=== PATIENT | male | born 1950 | race Caucasian/White ===

== ENCOUNTER 2017-11-20 17:28 | Observation (INO) | payer OTHER, MEDICARE ==
[~2017-11-20] VITALS: Ht 182.9 cm; Wt 80.8 kg
[~2017-11-20 17:28] MED LIST: BENZ200C25 PO; CARV3.122 PO; CLOP75TA28 PO; CLOP75TA69 PO; HYDR1TAB PO; LISI-552 PO; LISI2.5T PO; MECL-106 PO
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
--- NOTE | 2017-11-20 17:47 | ED Fall/Injury ---
General Chief Complaint: Trauma-Non Activation Stated Complaint: THROWN OFF OF HORSE/L SIDE INJ Source: patient Exam Limitations: no limitations (KARY MARCUS MD) History of Present Illness Date Seen by Provider: Nov 20, 2017 Time Seen by Provider: 17:31 Initial Comments Here with report of left clavicle fracture. States he is right no horse and got bucked off. Landed on the left shoulder on a hard spot. Is adamant that he did not hit his head and denies head or neck pain. He was wearing his cowboy hat and that did not get knocked off. Denies other injury. States that he has some pain near the shoulder blade on the left as well. He is not on blood thinners. Occurred: just prior to arrival (within the last 30 minutes) Severity: moderate Injuries/Pain Location: upper extremity Context: other (bucked off a horse) Loss of Consciousness: no loss of consciousness Modifying Factors: Improves With Immobilization; Worse With Movement Associated Symptoms (Fall): No Abdominal Pain, No Chest Pain; Muscle Spasms; No Neck Pain, No Shortness of Air (KARY MARCUS MD) Allergies and Home Medications Allergies Coded Allergies: No Known Drug Allergies (Unverified , 06/25/09) Home Medications Amlodipine Besylate 2.5 Mg Tablet, 2.5 MG PO DAILY, (Reported) Carvedilol 3.125 Mg Tablet, 3.125 MG PO BID, (Reported) Olmesartan/Hydrochlorothiazide 1 Each Tablet, 1 EACH PO DAILY, (Reported) Patient Home Medication List Home Medication List Reviewed: Yes (KARY MARCUS MD) Review of Systems Review of Systems Constitutional: see HPI; No chills, No fever Respiratory: no symptoms reported Cardiovascular: no symptoms reported Musculoskeletal: see HPI, joint pain, muscle pain Skin: No change in color, No lesions (KARY MARCUS MD) Past Avtaiwp-Unzrpx-Fminpz Hx Past Med/Social Hx: Reviewed Nursing Past Med/Soc Hx (KARY MARCUS MD) Patient Social History Alcohol Use: Denies Use Recreational Drug Use: No Smoking Status: Former Smoker Type Used: Cigarettes Former Smoker, Quit: Oct 02, 1973 Recent Foreign Travel: No Contact w/Someone Who Travel: No Recent Hopitalizations: No (LEFT FX ELBOW) Physical Abuse: No Sexual Abuse: No (KARY MARCUS MD) Past Medical History Surgeries: Yes Respiratory: Yes (ASTHMA A CHILD) Asthma Cardiac: Yes Hypertension Neurological: No Reproductive Disorders: No Gastrointestinal: No Musculoskeletal: Yes (LEFT ELBOW FX) Endocrine: No Cancer: No Psychosocial: No Integumentary: No Blood Disorders: No (KARY MARCUS MD) Family Medical History Reviewed Nursing Family Hx (KARY MARCUS MD) No Pertinent Family Hx (KARY MARCUS MD) Physical Exam Vital Signs Vital Signs - First Documented 11/20/17 17:30 Temp 97.6 Pulse 86 Resp 18 B/P (MAP) 160/109 (126) Pulse Ox 96 (LULÚ HUA MD) Vital Signs Capillary Refill : (KARY MARCUS MD) Height, Weight, BMI Height: 6'0.00" Weight: 195lbs. 0.0oz. 88.289452ns; 26.5 BMI Method:Estimated General Appearance: WD/WN, no apparent distress HEENT: PERRL/EOMI, TMs normal, pharynx normal Neck: full range of motion, supple Cardiovascular: regular rate, rhythm, no murmur Respiratory: lungs clear, normal breath sounds Gastrointestinal: non tender, soft Back: normal inspection, no CVA tenderness, no vertebral tenderness Extremities: other (tender to the area of the left clavicle but does not include the proximal humerus) Neurologic/Psychiatric: alert, oriented x 3 Skin: normal color, warm/dry (KARY MARCUS MD) Neeta Coma Score Best Eye Response: (4) Open Spontaneously Best Verbal Response: (5) Oriented Best Motor Response: (6) Obeys Commands (KARY MARCUS MD) Progress/Results/Core Measures Results/Orders Lab Results Laboratory Tests Test 11/20/17 17:55 Range/Units White Blood Count 8.2 4.3-11.0 10^3/uL Red Blood Count 4.60 4.35-5.85 10^6/uL Hemoglobin 13.1 L 13.3-17.7 G/DL Hematocrit 39 L 40-54 % Mean Corpuscular Volume 86 80-99 FL Mean Corpuscular Hemoglobin 28 25-34 PG Mean Corpuscular Hemoglobin Concent 33 32-36 G/DL Red Cell Distribution Width 14.9 H 10.0-14.5 % Platelet Count 296 130-400 10^3/uL Mean Platelet Volume 10.1 7.4-10.4 FL Neutrophils (%) (Auto) 68 42-75 % Lymphocytes (%) (Auto) 21 12-44 % Monocytes (%) (Auto) 8 0-12 % Eosinophils (%) (Auto) 2 0-10 % Basophils (%) (Auto) 1 0-10 % Neutrophils # (Auto) 5.6 1.8-7.8 X 10^3 Lymphocytes # (Auto) 1.7 1.0-4.0 X 10^3 Monocytes # (Auto) 0.7 0.0-1.0 X 10^3 Eosinophils # (Auto) 0.2 0.0-0.3 10^3/uL Basophils # (Auto) 0.1 0.0-0.1 10^3/uL Sodium Level 138 135-145 MMOL/L Potassium Level 3.2 L 3.6-5.0 MMOL/L Chloride Level 104 98-107 MMOL/L Carbon Dioxide Level 22 21-32 MMOL/L Anion Gap 12 5-14 MMOL/L Blood Urea Nitrogen 10 7-18 MG/DL Creatinine 1.13 0.60-1.30 MG/DL Estimat Glomerular Filtration Rate > 60 BUN/Creatinine Ratio 9 Glucose Level 129 H 70-105 MG/DL Calcium Level 9.8 8.5-10.1 MG/DL Corrected Calcium 9.4 8.5-10.1 MG/DL Total Bilirubin 0.3 0.1-1.0 MG/DL Aspartate Amino Transf (AST/SGOT) 17 5-34 U/L Alanine Aminotransferase (ALT/SGPT) 20 0-55 U/L Alkaline Phosphatase 56 40-136 U/L Total Protein 7.7 6.4-8.2 GM/DL Albumin 4.5 3.2-4.5 GM/DL (LULÚ HUA MD) My Orders Orders - LULÚ HUA MD Fentanyl Injection (Sublimaze Injection (11/20/17 18:30) Fentanyl Injection (Sublimaze Injection (11/20/17 18:18) Ct Chest W (11/20/17 18:36) Iohexol Injection (Omnipaque 350 Mg/Ml 1 (10/11/18 19:00) Ns (Ivpb) (Sodium Chloride 0.9%) (11/20/17 19:00) Potassium Chloride (Tablet) (Klor Con Ta (11/20/17 20:00) (LULÚ HUA MD) Medications Given in ED Current Medications Medications Dose Ordered Sig/Rafael Route Start Time Stop Time Status Last Admin Dose Admin Fentanyl Citrate 50 mcg ONCE ONCE IVP 11/20/17 18:30 11/20/17 18:31 DC 11/20/17 18:25 50 MCG Iohexol 75 ml ONCE ONCE IV 11/20/17 19:00 11/20/17 19:01 DC 11/20/17 18:59 75 ML Potassium Chloride 20 meq ONCE ONCE PO 11/20/17 20:00 11/20/17 20:01 DC 11/20/17 20:00 20 MEQ Sodium Chloride 250 ml ONCE ONCE IV 11/20/17 19:00 11/20/17 19:01 DC 11/20/17 18:59 250 ML (LULÚ HUA MD) Vital Signs/I&O 11/20/17 17:30 Temp 97.6 Pulse 86 Resp 18 B/P (MAP) 160/109 (126) Pulse Ox 96 (LULÚ HUA MD) Progress Progress Note : Progress Note Seen and evaluated. We did discuss the options of CT of the head and neck and patient is adamant about that he has no pain and did not hit his head. He is not on blood thinners. We will forego CT scanning at this point but will get chest x-ray and clavicle x-ray. 1805: Care transferred to Dr. Escobar pending labs and we will get CT. Fractures noted of the upper ribs and clavicle. Also concern about small pneumothorax and left pleural effusion. 1615: Patient is on high flow O2 but is not in respiratory distress. High flow O2 for small pneumothorax on the left. Case was discussed with Dr. Glass and agrees with CT scan but we will evaluate creatinine given age and history of hypertension and type of blood pressure medicines that he is on. He will be notified of results. No indication for emergent chest tube at this time. (KARY MARCUS MD) Progress Note #1: Time: 18:44 Progress Note Ice in care of this patient from Dr. Marcus at shift change. Labs were pending at that time. CT modality was pending results of creatinine. Creatinine is normal and CT of the chest with contrast was ordered. Patient was placed on high flow oxygen due to presence of pneumothorax. End-tidal capnography was low. Patient was encouraged to except pain medication to help him take deep breaths. Fentanyl 50 g was given by IV route. Patient is now in CT for imaging. Patient denied any injury to the head or neck. He has no pain or tenderness in this region. He also denies any pain in the abdomen or pelvis. He has no pain in the hips with walking or on exam. Abdomen is soft and nontender. He denies lower back pain. CT is being limited to the chest based on history and exam. Progress Note #2: Time: 20:[address] scan was reviewed. Patient has fractures in ribs one through 6 on the left and a small pneumothorax. The clavicle fracture was also seen. I discussed the case with Dr. Glass who would like the patient omitted to the ICU for observation with a chest x-ray done at 22:00 and called to him. We will continue high flow oxygen to help manage the pneumothorax. Dr. Zamora was contacted regarding the clavicle fracture. Images were reviewed. He does not believe there is any reason for patient to be seen by orthopedics in the hospital but he is happy to follow up with him in the clinic. Patient is being fitted with a sling. Potassium is being replaced orally. (LULÚ HUA MD) Diagnostic Imaging Diagonstic Imaging: Xray Plain Films/CT/US/NM/MRI: other Comments NAME: LUIS ALBERTO,VICENTE W [facility] REC#: [id number] PT STATUS: REG ER : 1950 PHYSICIAN: KARY MARCUS MD ADMIT DATE: 11/20/17/ER Signed Date of Exam: 11/20/17 CLAVICLE, LEFT INDICATION: Left clavicle pain after trauma. COMPARISON: Chest radiograph performed concurrently. TECHNIQUE: Two views of the left clavicle were obtained. FINDINGS: There is an acute transverse and minimally comminuted fracture of the mid left clavicle. The superior fracture fragment has superior elevation of greater than one shaft width due to pull from the sternocleidomastoid muscle. Please see chest radiograph report for details of the left-sided rib fractures and pneumothorax. IMPRESSION: 1. Acute and mildly comminuted fracture of the mid left clavicle. 2. Please see chest radiograph report, dictated separately, for details of the acute left-sided rib fractures and associated small pneumothorax. Dictated by: Dictated on workstation # [id number] Dict: 11/20/171755 Trans: 11/20/17 1800 Interpreted by: DARCIE HERNANDEZ MD Electronically signed by: DARCIE HERNANDEZ MD 11/20/171799 Reviewed: Reviewed by Me Diagonstic Imaging: Xray Plain Films/CT/US/NM/MRI: chest Comments NAME: VICENTE SAHU [facility] REC#: [id number] PT STATUS: REG ER : 1950 PHYSICIAN: KARY MARCUS MD ADMIT DATE: 11/20/17/ER Signed Date of Exam: 11/20/17 CHEST PA/LAT (2 VIEW) INDICATION: Chest pain after trauma. COMPARISON: Chest radiograph of 09/04/2015. TECHNIQUE: Two views of the chest were obtained. FINDINGS: Acute and mildly displaced fracture of the posterior left third and fourth ribs. There is associated small pneumothorax present. Small left pleural effusion is also seen. No features of pulmonic laceration or contusion. Acute and displaced fracture of the mid left clavicle. IMPRESSION: 1. Acute and displaced fractures of the posterior aspect of the left third and fourth ribs results in a small left apical pneumothorax. 2. Small left pleural effusion. 3. Displaced mid left clavicular fracture. Dictated by: Dictated on workstation # [id number] Dict: 11/20/171753 Trans: 11/20/17 1800 Interpreted by: DARCIE HERNANDEZ MD Electronically signed by: DARCIE HERNANDEZ MD 11/20/17 1800 Reviewed: Reviewed by Me (KARY MARCUS MD) Diagonstic Imaging: CT Plain Films/CT/US/NM/MRI: chest Comments CT of the chest with contrast viewed by me and report reviewed. Discussed with the radiologist. See report below. Not discussed and the report is also the comminuted left clavicle fracture. See separate x-ray report for the clavicle fracture. NAME: VICENTE SAHU [facility] REC#: [id number] PT STATUS: REG ER : 1950 PHYSICIAN: LULÚ HUA MD ADMIT DATE: 11/20/17/ER Draft Date of Exam:11/20/17 CT CHEST W PROCEDURE: CT chest with contrast only. TECHNIQUE: Multiple contiguous axial images were obtained through the chest after administration of intravenous contrast. INDICATION: Fall off of horse, chest trauma. COMPARISON: Chest radiograph and clavicle radiographs earlier same day. FINDINGS: Lungs and airway: No endoluminal debris within the trachea. There is a small amount of dependent atelectasis in the left lung base. No pulmonary mass. A 6 mm right lower lobe pulmonary nodule (image 39, series 2) is along the major fissure. Pleura: Small left-sided pneumothorax is again noted. A trace left-sided pleural effusion is also seen. Heart and mediastinum: Thyroid is normal. No supraclavicular or axillary lymphadenopathy. No mediastinal hemorrhage. Heart is normal in size without pericardial effusion. No evidence of an acute injury in the aorta. Upper abdomen: Visualized portions of the upper abdomen show no acute traumatic injury. Musculoskeletal: There are fractures in the left upper ribs which are as follows: Minimally comminuted left first rib fracture, mildly comminuted anterior left second rib fracture, segmental fracture of the lateral and anterior left third rib, moderately displaced fracture of the lateral left fourth rib, mildly displaced fracture of the left fifth and sixth ribs in their lateral aspect. No left-sided scapular fracture. Mildly comminuted left mid clavicular fracture is again noted. No sternal fracture. No right-sided rib fractures. No acute compression or burst fracture within the thoracic spine. IMPRESSION: 1. Trace left pneumothorax and pleural effusion are secondary to multiple left-sided rib fractures. 2. Left-sided rib fractures extending from the left first rib through the left sixth rib. The majority of these involve only a single fracture site within the rib, although there is a segmental-type fracture of the left third rib. 3. No pulmonary contusion or laceration. 4. Incidental note of 6 mm right lower lobe pulmonary nodule which may represent a benign intrapulmonary lymph node. A followup CT chest in 6-12 months could be performed to assess stability. Dictated on workstation # [id number] Dict: 11/20/171901 Trans: 11/20/171914 [facility] [id number] Interpreted by: DARCIE HERNANDEZ MD (LULÚ HUA MD) Departure Communication (Admissions) Time/Spoke to Admitting Phy: 19:50 Dr. Glass (LULÚ HUA MD) Impression Primary Impression: Multiple rib fractures Qualified Codes: S22.42XA - Multiple fractures of ribs, left side, initial encounter for closed fracture Additional Impressions: Closed left clavicular fracture Qualified Codes: S42.022A - Displaced fracture of shaft of left clavicle, initial encounter for closed fracture Pneumothorax, left Fall from horse Qualified Codes: V80.010A - Animal-rider injured by fall from or being thrown from horse in noncollision accident, initial encounter Hypokalemia Disposition: ADMITTED INPATIENT Condition: Stable Admissions Decision to Admit Reason: Admit from ER (Trauma) Decision to Admit/Date: Nov 20, 2017 Time/Decision to Admit Time: 18:00 (LULÚ HUA MD) Departure-Patient Inst. Referrals: DARBY SAINZ DO (PCP/Family) Primary Care Physician KARY MARCUS MD Nov 20, 2017 17:47 LULÚ HUA MD Nov 20, 2017 18:47
--- NOTE | 2017-11-20 17:59 | Diagnostic Imaging Report ---
INDICATION: Chest pain after trauma. COMPARISON: Chest radiograph of 09/04/2015. TECHNIQUE: Two views of the chest were obtained. FINDINGS: Acute and mildly displaced fracture of the posterior left third and fourth ribs. There is associated small pneumothorax present. Small left pleural effusion is also seen. No features of pulmonic laceration or contusion. Acute and displaced fracture of the mid left clavicle. IMPRESSION: 1. Acute and displaced fractures of the posterior aspect of the left third and fourth ribs results in a small left apical pneumothorax. 2. Small left pleural effusion. 3. Displaced mid left clavicular fracture. Dictated by: Dictated on workstation # [id number]
[2017-11-20] MEDS ORDERED: OLME1TAB24 PO (18:02)
[2017-11-20] MEDS ORDERED: ASPI-586 PO (18:02)
[2017-11-20] MEDS ORDERED: AMLO2.5T2 PO (18:02)
--- NOTE | 2017-11-20 18:03 | Diagnostic Imaging Report ---
INDICATION: Left clavicle pain after trauma. COMPARISON: Chest radiograph performed concurrently. TECHNIQUE: Two views of the left clavicle were obtained. FINDINGS: There is an acute transverse and minimally comminuted fracture of the mid left clavicle. The superior fracture fragment has superior elevation of greater than one shaft width due to pull from the sternocleidomastoid muscle. Please see chest radiograph report for details of the left-sided rib fractures and pneumothorax. IMPRESSION: 1. Acute and mildly comminuted fracture of the mid left clavicle. 2. Please see chest radiograph report, dictated separately, for details of the acute left-sided rib fractures and associated small pneumothorax. Dictated by: Dictated on workstation # [id number]
[2017-11-20 18:06] LABS: BASOPHILS # (AUTO) 0.1 10^3/uL (0.0-0.1); BASOPHILS % (AUTO) 1 % (0-10); EOSINOPHILS # (AUTO) 0.2 10^3/uL (0.0-0.3); EOSINOPHILS % (AUTO) 2 % (0-10); HEMATOCRIT 39 % (40-54); HEMOGLOBIN 13.1 G/DL (13.3-17.7); LYMPHOCYTES # (AUTO) 1.7 X 10^3 (1.0-4.0); LYMPHOCYTES % (AUTO) 21 % (12-44); MEAN CORPUSCULAR HEMOGLOBIN 28 PG (25-34); MEAN CORPUSCULAR HGB CONC 33 G/DL (32-36); MEAN CORPUSCULAR VOLUME 86 FL (80-99); MEAN PLATELET VOLUME 10.1 FL (7.4-10.4); MONOCYTES # (AUTO) 0.7 X 10^3 (0.0-1.0); MONOCYTES % (AUTO) 8 % (0-12); NEUTROPHILS # (AUTO) 5.6 X 10^3 (1.8-7.8); NEUTROPHILS % (AUTO) 68 % (42-75); PLATELET COUNT 296 10^3/uL (130-400); RED CELL DISTRIBUTION WIDTH 14.9 % (10.0-14.5); WHITE BLOOD COUNT 8.2 10^3/uL (4.3-11.0)
[2017-11-20] MEDS ORDERED: fentaNYL INJECTION 100 MCG/2 ML AMP ONE (18:18)
[2017-11-20 18:28] LABS: ALANINE AMINOTRANSFERASE 20 U/L (0-55); ALBUMIN 4.5 GM/DL (3.2-4.5); ALKALINE PHOSPHATASE 56 U/L (40-136); BILIRUBIN,TOTAL 0.3 MG/DL (0.1-1.0); BUN/CREATININE RATIO 9; CALCIUM 9.8 MG/DL (8.5-10.1); CARBON DIOXIDE 22 MMOL/L (21-32); CHLORIDE 104 MMOL/L (98-107); CREATININE SERUM 1.13 MG/DL (0.60-1.30); GFR ESTIMATED > 60; GLUCOSE 129 MG/DL (70-105); POTASSIUM 3.2 MMOL/L (3.6-5.0); SODIUM 138 MMOL/L (135-145); TOTAL PROTEIN 7.7 GM/DL (6.4-8.2)
[2017-11-20] MEDS ORDERED: fentaNYL INJECTION 100 MCG/2 ML AMP IVP ONE (18:30)
[2017-11-20] MEDS ORDERED: IOHEXOL 350 MG/ML 100 ML (OMNIPAQUE 350) VIAL IV ONE (19:00)
[2017-11-20] MEDS ORDERED: NS 250 ML (IVPB) BAG IV ONE (19:00)
--- NOTE | 2017-11-20 19:16 | Diagnostic Imaging Report ---
PROCEDURE: CT chest with contrast only. TECHNIQUE: Multiple contiguous axial images were obtained through the chest after administration of intravenous contrast. INDICATION: Fall off of horse, chest trauma. COMPARISON: Chest radiograph and clavicle radiographs earlier same day. FINDINGS: Lungs and airway: No endoluminal debris within the trachea. There is a small amount of dependent atelectasis in the left lung base. No pulmonary mass. A 6 mm right lower lobe pulmonary nodule (image 39, series 2) is along the major fissure. Pleura: Small left-sided pneumothorax is again noted. A trace left-sided pleural effusion is also seen. Heart and mediastinum: Thyroid is normal. No supraclavicular or axillary lymphadenopathy. No mediastinal hemorrhage. Heart is normal in size without pericardial effusion. No evidence of an acute injury in the aorta. Upper abdomen: Visualized portions of the upper abdomen show no acute traumatic injury. Musculoskeletal: There are fractures in the left upper ribs which are as follows: Minimally comminuted left first rib fracture, mildly comminuted anterior left second rib fracture, segmental fracture of the lateral and anterior left third rib, moderately displaced fracture of the lateral left fourth rib, mildly displaced fracture of the left fifth and sixth ribs in their lateral aspect. No left-sided scapular fracture. Mildly comminuted left mid clavicular fracture is again noted. No sternal fracture. No right-sided rib fractures. No acute compression or burst fracture within the thoracic spine. IMPRESSION: 1. Trace left pneumothorax and pleural effusion are secondary to multiple left-sided rib fractures. 2. Left-sided rib fractures extending from the left first rib through the left sixth rib. The majority of these involve only a single fracture site within the rib, although there is a segmental-type fracture of the left third rib. 3. No pulmonary contusion or laceration. 4. Incidental note of 6 mm right lower lobe pulmonary nodule which may represent a benign intrapulmonary lymph node. A followup CT chest in 6-12 months could be performed to assess stability. Dictated by: Dictated on workstation # [id number]
[2017-11-20] MEDS ORDERED: KCL 10 MEQ TAB (MICRO K) PO ONE (20:00)
--- OUTSIDE RECORDS SUMMARY | 2017-11-20 20:14 | XMS REPORT | Continuity of Care Document ---
Author Author [facility] Address Unknown Phone Unavailable Allergies Active Description Code Type Severity Reaction Onset Reported/Identified Relationship to Patient Clinical Status Yes No Known Drug Allergies [id number] Drug Allergy Unknown N/A 06/25/2009 Medications There [...] Ot 401.9 HYPERTENSION NOS 05/09/2014 CAYETANO PACHECO, SONY Aquino Ot 562.10 DIVERTICULOSIS COLON (W/O MENT [...] CCDS Ot I10 ESSENTIAL (PRIMARY) HYPERTENSION 10/03/2015 EMAM PACHECO FAC, ALI FACP CCDS Ot I42.0 DILATED CARDIOMYOPATHY 10/03/2015 EMMA PACHECO FACC, ALI FACP CCDS Ot I44.7 LEFT BUNDLE-BRANCH BLOCK, UNSPECIFIED 10/03/2015 EMMA PACHECO FAC, ALI FACP CCDS Ot R42 DIZZINESS AND GIDDINESS 10/03/2015 EMMA PACHECO FAC, ALI FACP CCDS Ot Z79.899 OTHER INTERMEDIATE (CURRENT) DRUG THERAPY 10/10/2015 EMMA PACHECO FACC, ALI FACP CCDS Ot I10 ESSENTIAL (PRIMARY) HYPERTENSION 10/10/2015 EMMA PACHECO FAC, ALI FACP CCDS Ot I42.0 DILATED CARDIOMYOPATHY 10/10/2015 EMMA PACHECO [facility], ALI FACP CCDS Ot I44.7 LEFT BUNDLE-BRANCH BLOCK, UNSPECIFIED 10/10/2015 EMMA PACHECO [facility], ALI FACP CCDS Ot R42 DIZZINESS AND GIDDINESS 10/10/2015 EMMA PACHECO [facility], ALI FACP CCDS Ot Z79.899 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) DRUG THERAPY 10/11/2015 SONY MONTEIRO MD [...] Staphylococcus aureus (MRSA) screening culture NEG NRG Complete blood count (CBC) with automated white blood cell (WBC) differential - 11/20/17 17:55 Blood leukocytes automated count (number/volume) 8.2 10*3/uL 4.3-11.0 Blood erythrocytes automated count (number/volume) 4.60 10*6/uL 4.35-5.85 Venous blood hemoglobin measurement (mass/volume) 13.1 g/dL 13.3-17.7 Blood hematocrit (volume fraction) 39 % 40-54 Automated erythrocyte mean corpuscular volume 86 [foz_us] 80-99 Automated erythrocyte mean corpuscular hemoglobin (mass per erythrocyte) 28 pg 25-34 Automated erythrocyte mean corpuscular hemoglobin concentration measurement ( mass/volume) 33 g/dL 32-36 Automated erythrocyte distribution width ratio 14.9 % 10.0-14.5 Automated blood platelet count (count/volume) 296 10*3/uL 130-400 Automated blood platelet mean volume measurement 10.1 [foz_us] 7.4-10.4 Automated blood neutrophils/100 leukocytes 68 % 42-75 Automated blood lymphocytes/100 leukocytes 21 % 12-44 Blood monocytes/100 leukocytes 8 % 0-12 Automated blood eosinophils/100 leukocytes 2 % 0-10 Automated blood basophils/100 leukocytes 1 % 0-10 Blood neutrophils automated count (number/volume) 5.6 10*3 1.8-7.8 Blood lymphocytes automated count (number/volume) 1.7 10*3 1.0-4.0 Blood monocytes automated count (number/volume) 0.7 10*3 0.0-1.0 Automated eosinophil count 0.2 10*3/uL 0.0-0.3 Automated blood basophil count (count/volume) 0.1 10*3/uL 0.0-0.1 Comprehensive metabolic panel - 11/20/17 17:55 Serum or plasma sodium measurement (moles/volume) 138 mmol/L 135-145 Serum or plasma potassium measurement (moles/volume) 3.2 mmol/L 3.6-5.0 Serum or plasma chloride measurement (moles/volume) 104 mmol/L 98-107 Carbon dioxide 22 mmol/L 21-32 Serum or plasma anion gap determination (moles/volume) 12 mmol/L 5-14 Serum or plasma urea nitrogen measurement (mass/volume) 10 mg/dL 7-18 Serum or plasma creatinine measurement (mass/volume) 1.13 mg/dL 0.60-1.30 Serum or plasma urea nitrogen/creatinine mass ratio 9 NRG Serum or plasma creatinine measurement with calculation of estimated glomerular filtration rate > NRG Serum or plasma glucose measurement (mass/volume) 129 mg/dL 70-105 Serum or plasma calcium measurement (mass/volume) 9.8 mg/dL 8.5-10.1 Serum or plasma total bilirubin measurement (mass/volume) 0.3 mg/dL 0.1-1.0 Serum or plasma alkaline phosphatase measurement (enzymatic activity/volume) 56 U/L 40-136 Serum or plasma aspartate aminotransferase measurement (enzymatic activity/ volume) 17 U/L 5-34 Serum or plasma alanine aminotransferase measurement (enzymatic activity/volume ) 20 U/L 0-55 Serum or plasma protein measurement (mass/volume) 7.7 g/dL 6.4-8.2 Serum or plasma albumin measurement (mass/volume) 4.5 g/dL 3.2-4.5 CALCIUM CORRECTED 9.4 mg/dL 8.5-10.1 Encounters ACCT No. Visit Date/Time Discharge Status Pt. Type Provider Facility Loc./Unit Complaint [id number] 02/20/2012 15:30:08 RECURRING [id number] 10/03/2015 07:04:00 10/03/2015 14:30:00 DIS Outpatient EMMA PACHECO FACC, YESENIA THAKKAR CCDS [facility] CATH DILATED CARDIOMYOPATHY, PAH, VERTIGO, SOB [id number] 09/04/2015 12:37:00 09/05/2015 18:35:00 DIS Inpatient GERSONSTACEYOTIS MADRIGAL, DARBY S [facility] 4TH INTRACTABLE VERTIGO EKG CHANGES HYPOKALEMIA [id number] 05/09/2014 06:45:00 05/09/2014 09:40:00 DIS Outpatient SONY MONTEIRO MD [facility] HISTORY OF POLYPS [id number] 05/04/2014 11:46:00 05/04/2014 23:59:59 CLS Outpatient SONY MONTEIRO MD [facility] PREOP HISTORY OF POLYPS [id number] 01/29/2014 00:03:00 01/29/2014 00:28:00 DIS Emergency CANDACE SEBASTIAN MD [facility] ER SOA;COUGH [id number] 11/20/2017 18:06:00 Document Registration [id number] 06/15/2011 13:07:00 Document Registration [id number] 06/11/2010 06:13:00 Document Registration [id number] 07/06/2009 14:42:00 Document Registration [id number] 06/25/2009 23:07:00 Document Registration [id number] 06/25/2009 17:01:00 Document Registration [id number] 05/09/2014 15:22:57 ACT Document Registration
--- NOTE | 2017-11-20 20:32 | History & Physical-Surgical ---
History of Present Illness History of Present Illness Reason for visit/HPI 67 year old male who was seen in ED at 2014 Pt was seen after being bucked off his horse just prior to arrival. Pt states that he landed on his left shoulder and left chest. Pt denies hitting his head, denies LOC, denies N/V, denies any neck pain, denies SOB. Pt rates his pain a 4/ 10. Pt states he was previously bucked off a horse ~6 years ago and previously broke some ribs and his clavicle. Pt has NKDA. Pt was offered pain medication in ED and pt declined. Movement of left arm causes increased discomfort but not overall experiencing significant pain per pt. CT chest: trace left pneumothorax and pleural effusion secondary to left sided rib fractures, left sided rib fractures ribs 1-6, incidental RLL pulmonary nodule. CXR: rib fractures, left clavicular fracture, left apical pneumothorax Clavicle xray: mildly comminuted mid left clavicle fracture GCS 15 Date of Admission Nov 20, 2017 at 20:06 Date Seen by a Provider: Nov 20, 2017 Time Seen by a Provider: 20:15 I consulted on this patient on 11/20/17 20:27 Attending Physician Kun Carlin DO Admitting Physician Jessika Wallace DO Consult Allergies and Home Medications Allergies Coded Allergies: No Known Drug Allergies (Unverified , 06/25/09) Home Medications Amlodipine Besylate 2.5 Mg Tablet, 2.5 MG PO DAILY, (Reported) Carvedilol 3.125 Mg Tablet, 3.125 MG PO BID, (Reported) Olmesartan/Hydrochlorothiazide 1 Each Tablet, 1 EACH PO DAILY, (Reported) Patient Home Medication List Home Medication List Reviewed: Yes Past Owzgzsv-Dawndy-Jaxytz Hx Patient Social History Alcohol Use: Denies Use Recreational Drug Use: No Smoking Status: Former Smoker Former Smoker, Quit: Oct 02, 1973 Type Used: Cigarettes Recent Foreign Travel: No Contact w/Someone Who Travel: No Recent Infectious Disease Expo: No Recent Hopitalizations: No (LEFT FX ELBOW) Surgeries History of Surgeries: Yes Respiratory History of Respiratory Disorde: Yes (ASTHMA A CHILD) Respiratory Disorders: Asthma Cardiovascular History of Cardiac Disorders: Yes Cardiac Disorders: Hypertension Neurological History of Neurological Disord: No Reproductive System Hx Reproductive Disorders: No Gastrointestinal History of Gastrointestinal Di: No Musculoskeletal History of Musculoskeletal Dis: Yes (LEFT ELBOW FX) Endocrine History of Endocrine Disorders: No Cancer History of Cancer: No Psychosocial History of Psychiatric Problem: No Integumentary History of Skin or Integumenta: No Blood Transfusions History of Blood Disorders: No Family Medical History Significant Family History: No Pertinent Family Hx Review of Systems Constitutional: no symptoms reported EENTM: no symptoms reported Respiratory: see HPI; No short of breath Cardiovascular: no symptoms reported Gastrointestinal: no symptoms reported; No abdominal pain, No nausea, No vomiting Genitourinary: no symptoms reported Musculoskeletal: see HPI Skin: no symptoms reported Psychiatric/Neurological: No Symptoms Reported Physical Exam Vital Signs Vital Signs - First Documented 11/20/17 11/20/17 17:30 20:17 Temp 97.6 Pulse 86 Resp 18 B/P (MAP) 160/109 (126) Pulse Ox 96 O2 Delivery OxyMask O2 Flow Rate 6.00 Capillary Refill : Less Than 3 Seconds Height, Weight, BMI Height: 6'0" Weight: 200lbs. 0.0oz. [id number]; 26.5 BMI Method:Stated General Appearance: No Apparent Distress Eyes: Bilateral Eye PERRL HEENT: PERRL/EOMI, Normal ENT Inspection Neck: Full Range of Motion, Normal Inspection, Non Tender, Supple Respiratory: No Respiratory Distress, Other (echymosis and deformity of left chest wall at left clavicle and also left lateral aspect of chest, TTP left chest wall) Cardiovascular: Regular Rate, Rhythm Gastrointestinal: Non Tender, Soft Rectal: Deferred Back: No CVA Tenderness Extremity: Other (pain with ROM of left arm ) Neurologic/Psychiatric: Alert, Oriented x3, No Motor/Sensory Deficits Skin: Normal Color, Warm/Dry Lymphatic: No Adenopathy Data Review Labs Laboratory Tests 11/20/17 17:55: White Blood Count 8.2, Red Blood Count 4.60, Hemoglobin 13.1L, Hematocrit 39L, Mean Corpuscular Volume 86, Mean Corpuscular Hemoglobin 28, Mean Corpuscular Hemoglobin Concent 33, Red Cell Distribution Width 14.9H, Platelet Count 296, Mean Platelet Volume 10.1, Neutrophils (%) (Auto) 68, Lymphocytes (%) (Auto) 21 , Monocytes (%) (Auto) 8, Eosinophils (%) (Auto) 2, Basophils (%) (Auto) 1, Neutrophils # (Auto) 5.6, Lymphocytes # (Auto) 1.7, Monocytes # (Auto) 0.7, Eosinophils # (Auto) 0.2, Basophils # (Auto) 0.1, Sodium Level 138, Potassium Level 3.2L, Chloride Level 104, Carbon Dioxide Level 22, Anion Gap 12, Blood Urea Nitrogen 10, Creatinine 1.13, Estimat Glomerular Filtration Rate > 60, BUN/ Creatinine Ratio 9, Glucose Level 129H, Calcium Level 9.8, Corrected Calcium 9.4 , Total Bilirubin 0.3, Aspartate Amino Transf (AST/SGOT) 17, Alanine Aminotransferase (ALT/SGPT) 20, Alkaline Phosphatase 56, Total Protein 7.7, Albumin 4.5 Assessment/Plan Assessment/Plan Admission Diagonsis Fall from horse left clavicle fracture left rib fracture 1-6 left pneumothorax - trace right lower lobe pulmonary nodule Admission Status: Observation Assessment/Plan Fall from horse left clavicle fracture left rib fracture 1-6 left pneumothorax - trace right lower lobe pulmonary nodule Ortho follow up as outpt, sling for comfort. Offered pt rib block and possible epidural which pt refused. pain control recheck labs in AM repeat CXR at approximately 2000 and in the morning. If patient has any episodes of shortness of breath or chest pain or any other symptoms concerning for expanding pneumothorax nursing was instructed to call myself immediately. Admit ICU Physician Assessment Physician Assessment Scribed by Leif Todd MS3 for JUAN Duncan MEDICAL STUDENT Nov 20, 2017 20:32 KUN CARLIN DO Nov 20, 2017 22:53
[2017-11-20 20:37] VITALS: BP 150/82
[2017-11-20 21:00] VITALS: BP 138/97
--- NOTE | 2017-11-20 22:01 | Diagnostic Imaging Report ---
Indication: Followup of right pneumothorax. Comparison: Chest are graph of earlier same day at 6:07 PM. Findings: Unchanged small left apical pneumothorax. Multifocal fractures of the left first through sixth rib are better appreciated on recent CT. Left clavicular fracture is unchanged. Patchy left basilar pulmonary opacities are similar. Small left pleural effusion is unchanged. Stable cardiomediastinal silhouette. Impression: Unchanged trace left apical pneumothorax. Dictated by: Dictated on workstation # [id number]
[2017-11-20 22:04] VITALS: BP 131/85
[2017-11-20] MEDS: fentaNYL INJECTION 100 MCG/2 ML AMP IV PRN (22:11)
[2017-11-20 23:00] VITALS: BP 126/75
[2017-11-20 23:22] VITALS: BP 150/82
[2017-11-21] VITALS (17 sets, daily range): BP systolic 118–163; BP diastolic 32–93
[2017-11-21] MEDS: RT-ALBUTEROL SULF 2.5 MG/3 ML PRE-MIX VIAL INH SCH ×4 (01:39→13:44)
[2017-11-21 03:15] LABS: BASOPHILS % (AUTO) 0 % (0-10); EOSINOPHILS % (AUTO) 0 % (0-10); HEMATOCRIT 36 % (40-54); LYMPHOCYTES # (AUTO) 0.8 X 10^3 (1.0-4.0); LYMPHOCYTES % (AUTO) 6 % (12-44); MEAN CORPUSCULAR HEMOGLOBIN 29 PG (25-34); MEAN CORPUSCULAR HGB CONC 33 G/DL (32-36); MEAN CORPUSCULAR VOLUME 87 FL (80-99); MEAN PLATELET VOLUME 10.5 FL (7.4-10.4); MONOCYTES # (AUTO) 0.8 X 10^3 (0.0-1.0); MONOCYTES % (AUTO) 6 % (0-12); NEUTROPHILS # (AUTO) 11.3 X 10^3 (1.8-7.8); NEUTROPHILS % (AUTO) 87 % (42-75); PLATELET COUNT 244 10^3/uL (130-400); RED BLOOD COUNT 4.18 10^6/uL (4.35-5.85); RED CELL DISTRIBUTION WIDTH 15.1 % (10.0-14.5); WHITE BLOOD COUNT 12.9 10^3/uL (4.3-11.0)
[2017-11-21 03:38] LABS: BUN/CREATININE RATIO 12; CARBON DIOXIDE 24 MMOL/L (21-32); CHLORIDE 104 MMOL/L (98-107); CREATININE SERUM 1.04 MG/DL (0.60-1.30); POTASSIUM 4.3 MMOL/L (3.6-5.0); SODIUM 136 MMOL/L (135-145)
[2017-11-21 03:39] LABS: CALCIUM 9.5 MG/DL (8.5-10.1); GFR ESTIMATED > 60; GLUCOSE 146 MG/DL (70-105); MAGNESIUM 2.1 MG/DL (1.8-2.4); PHOSPHORUS 3.1 MG/DL (2.3-4.7)
[2017-11-21 03:59] LABS: EOSINOPHILS % (MANUAL) 1 %; LYMPHOCYTES % (MANUAL) 7 %; MONOCYTES % (MANUAL) 6 %; NEUTROPHILS % (MANUAL) 86 %
[2017-11-21] MEDS: fentaNYL INJECTION 100 MCG/2 ML AMP IV PRN ×3 (04:58→17:36)
[2017-11-21] MEDS ORDERED: KCL 20 MEQ TAB (K-DUR) PO SCH (06:00)
[2017-11-21] MEDS ORDERED: POTASSIUM CL 10MEQ/50ML IVPB 50 ML IV SCH (06:00)
[2017-11-21] MEDS ORDERED: MAGNESIUM 1 GM/100 ML IVPB 100 ML IV SCH (06:00)
[2017-11-21] MEDS ORDERED: FLU QUADRIvalent (5+ YOA) 2018-2019 (AFLURIA) 0.5 ML IM ONE (07:00)
--- NOTE | 2017-11-21 07:21 | Diagnostic Imaging Report ---
INDICATION: Followup. Rib fractures. Pneumothorax COMPARISON: 11/20/2017 FINDINGS: Frontal and lateral radiographic views of the chest were obtained and again demonstrate trace left apical pneumothorax. There is asymmetric prominence of the pleura on the left. There is also increasing left basilar effusion. Right lung remains relatively clear. There is no large effusion or pneumothorax on the right. Cardiac silhouette and pulmonary vasculature stable. Bony structures again show multiple rib fractures and acute fracture of the left clavicle. IMPRESSION: 1. Stable trace left apical pneumothorax. 2. Perhaps slight interval increase in left-sided effusion/hemothorax. Dictated by: Dictated on workstation # [id number]
--- NOTE | 2017-11-21 09:13 | Progress Note ---
Subjective Date Seen by a Provider: Nov 21, 2017 Time Seen by a Provider: 06:50 Subjective/Events-last exam Pt doing well, state he has not had any CP, SOB, N/V. Pt received some pain medication because he had some rib discomfort when he went to [place] and had to move his left arm. CXR today: stable from yesterday. Repeat today stable small apical pneumothorax. Patient wanting to go home. Okay to [place] home. Needs follow up with ortho outpatient. Objective Exam Vital Signs Date Time Temp Pulse Resp B/P (MAP) Pulse Ox O2 Delivery O2 Flow Rate FiO2 11/21/17 08:00 98.5 OxyMask 6.00 11/21/17 08:00 86 17 124/66 (85) 100 OxyMask 6.00 11/21/17 07:00 102 11/21/17 07:00 102 24 139/93 (108) 97 OxyMask 6.00 11/21/17 06:17 100 OxyMask 6.00 11/21/17 06:00 76 24 120/70 (87) 98 OxyMask 11/21/17 05:00 75 28 132/70 (90) 99 OxyMask 11/21/17 04:00 83 22 125/76 (92) 100 OxyMask 11/21/17 04:00 96 OxyMask 6.00 11/21/17 03:00 93 27 129/73 (91) 100 OxyMask 11/21/17 02:00 88 26 118/66 (83) 100 OxyMask 11/21/17 01:46 100 OxyMask 6.00 11/21/17 01:00 84 17 122/71 (88) 98 OxyMask 11/21/17 00:59 81 11/21/17 00:00 100 OxyMask 6.00 11/21/17 00:00 84 16 124/76 (92) 100 OxyMask 11/20/17 23:22 92 100 11/20/17 23:00 89 28 126/75 (92) 97 OxyMask 11/20/17 22:04 82 26 131/85 (100) 100 OxyMask 11/20/17 21:00 84 14 138/97 (111) 100 OxyMask 11/20/17 21:00 OxyMask 6.00 11/20/17 20:37 99.7 82 16 150/82 (104) 100 OxyMask 11/20/17 20:30 OxyMask 6.00 11/20/17 20:17 98.1 68 12 129/84 (99) 98 OxyMask 6.00 11/20/17 17:30 97.6 86 18 160/109 (126) 96 I & O 11/21/17 07:00 Intake Total 100 ml Output Total 350 ml Balance -250 ml Capillary Refill : Less Than 3 Seconds General Appearance: No Apparent Distress HEENT: PERRL/EOMI, Normal ENT Inspection Neck: Full Range of Motion, Normal Inspection, Non Tender, Supple Respiratory: No Respiratory Distress, Other (echymosis and deformity of left chest wall at left clavicle and also left lateral aspect of chest, TTP left chest wall) Cardiovascular: Regular Rate, Rhythm Gastrointestinal: non tender, soft Extremity: Other (pain with ROM of left arm ) Neurologic/Psychiatric: Alert, Oriented x3, No Motor/Sensory Deficits Skin: Normal Color, Warm/Dry Lymphatic: No Adenopathy Results Lab Laboratory Tests 11/20/17 17:55: White Blood Count 8.2, Red Blood Count 4.60, Hemoglobin 13.1L, Hematocrit 39L, Mean Corpuscular Volume 86, Mean Corpuscular Hemoglobin 28, Mean Corpuscular Hemoglobin Concent 33, Red Cell Distribution Width 14.9H, Platelet Count 296, Mean Platelet Volume 10.1, Neutrophils (%) (Auto) 68, Lymphocytes (%) (Auto) 21 , Monocytes (%) (Auto) 8, Eosinophils (%) (Auto) 2, Basophils (%) (Auto) 1, Neutrophils # (Auto) 5.6, Lymphocytes # (Auto) 1.7, Monocytes # (Auto) 0.7, Eosinophils # (Auto) 0.2, Basophils # (Auto) 0.1, Sodium Level 138, Potassium Level 3.2L, Chloride Level 104, Carbon Dioxide Level 22, Anion Gap 12, Blood Urea Nitrogen 10, Creatinine 1.13, Estimat Glomerular Filtration Rate > 60, BUN/ Creatinine Ratio 9, Glucose Level 129H, Calcium Level 9.8, Corrected Calcium 9.4 , Total Bilirubin 0.3, Aspartate Amino Transf (AST/SGOT) 17, Alanine Aminotransferase (ALT/SGPT) 20, Alkaline Phosphatase 56, Total Protein 7.7, Albumin 4.5 11/21/17 02:51: White Blood Count 12.9H, Red Blood Count 4.18L, Hemoglobin 12.0L, Hematocrit 36L , Mean Corpuscular Volume 87, Mean Corpuscular Hemoglobin 29, Mean Corpuscular Hemoglobin Concent 33, Red Cell Distribution Width 15.1H, Platelet Count 244, Mean Platelet Volume 10.5H, Neutrophils (%) (Auto) 87H, Lymphocytes (%) (Auto) 6L, Monocytes (%) (Auto) 6, Eosinophils (%) (Auto) 0, Basophils (%) (Auto) 0, Neutrophils # (Auto) 11.3H, Lymphocytes # (Auto) 0.8L, Monocytes # (Auto) 0.8, Eosinophils # (Auto) 0.0, Basophils # (Auto) 0.0, Sodium Level 136, Potassium Level 4.3, Chloride Level 104, Carbon Dioxide Level 24, Anion Gap 8, Blood Urea Nitrogen 12, Creatinine 1.04, Estimat Glomerular Filtration Rate > 60, BUN/ Creatinine Ratio 12, Glucose Level 146H, Calcium Level 9.5, Neutrophils % ( Manual) 86, Lymphocytes % (Manual) 7, Monocytes % (Manual) 6, Eosinophils % ( Manual) 1, Phosphorus Level 3.1, Magnesium Level 2.1 Assessment/Plan Assessment/Plan Assessment/Plan Fall from horse left clavicle fracture left rib fracture 1-6 left pneumothorax - trace right lower lobe pulmonary nodule Will get CXR later today, will decrease O2 by mask today, if stable today will D /C this evening Needs to follow up with primary care physician in 6 months to follow pulmonary nodule. Follow up with Ortho in 1 week. Final Diagnosis Fall from horse left clavicle fracture left rib fracture 1-6 left pneumothorax right lower lobe pulmonary nodule Clinical Quality Measures DVT/VTE Risk/Contraindication: Risk Factor Score Per Nursin RFS Level Per Nursing on Admit: 2=Moderate Physician Assessment Physician Assessment Scribed by Leif Todd MS3 for JUAN Luevano MEDICAL STUDENT Nov 21, 2017 09:13 KUN CARLIN DO Nov 21, 2017 16:08
--- NOTE | 2017-11-21 14:04 | Diagnostic Imaging Report ---
INDICATION: Left-sided pneumothorax, followup. TECHNIQUE: Single view chest 1:25 PM. CORRELATION STUDY: 11/21/2017 FINDINGS: Deformity of the left chest wall again demonstrated. There is very small left apical pneumothorax present. There is pleural thickening along the left lateral chest wall appears perhaps slightly increased. Some areas of atelectasis or infiltrate of the left lung base appears adversely changed. Right hemithorax stable. There does appear to be likely small right pleural effusion. Cardiac enlargement of the prominent mediastinum likely stable given difference of technique. Vasculature within normal limits. IMPRESSION: 1. There is rather small left apical pneumothorax present. There is some progressively increased density along the peripheral margin of the left hemithorax likely fluid such as atelectasis or infiltrate left lung base. Dictated by: Dictated on workstation # [id number]
[2017-11-21] MEDS ORDERED: ACHD5005 PO (15:45)
[2017-11-21] MEDS ORDERED: DOCU-143 PO (15:45)
--- NOTE | 2017-11-21 16:00 | Discharge Inst-Simple/Standard ---
Discharge Inst-Standard Discharge Medications New, Converted or Re-Newed RX: RX on Chart Patient Instructions/Follow Up Plan of Care/Instructions/FU: 1 week Maria Luisa Activity as Tolerated: No Discharge Diet: Regular Diet Other Inst to Patient Follow up Appt: Make appointment for 1 week. Instructions: No lifting greater than 10 pounds. No strenuous activity. No Smoking If any shortness of breath or change in pain. Be seen at that time immediately. Symptoms to Report: Appetite Changes, Extremity Discoloration, Numbness/Tingling, Swelling Increased , Bleeding Excessive, Eyesight Changes, Pain Increased, Urine Color Change, Constipation(Persistent), Fever over 101 degree F, Pain/Pressure in chest, Urinating Difficulty, Cough Up/Vomit Blood, Heart Beat Irreg/Pounding, Pain/ Pressure in jaw, Vaginal Bleeding Increase, Cramps in feet or legs, Lightheadedness, Pain/Pressure in shoulder, Diarrhea(Persistent), Memory Changes Suddenly, Questions/Concerns, Weight gain consecutive days, Dizziness/ Fainting, Nausea/Vomiting, Shortness of Breath, Weight gain over 2 pounds If questions or concerns contact your physician Or seek help at emergency department. Planned Outpatient Orders/Ref. Pneu Vac Indicated: Yes KUN CARLIN DO Nov 21, 2017 15:57
== END 2017-11-21 15:45 | disposition home or self-care (01) ==
LOC: EDUNIT# 17:28 → ER 17:29 → ICU 20:06 → UNDOADMOB 20:06 → ICU 20:25 → UNDODISOB 11-21 17:40
PROVIDERS: ADMIT Surgery; ATTEND Surgery
DX: S27.0XXA Traumatic pneumothorax, initial encounter (principal); S22.42XA Multiple fractures of ribs, left side, initial encounter for closed fracture; S42.022A Displaced fracture of shaft of left clavicle, initial encounter for closed fracture; E87.6 Hypokalemia; R91.1 Solitary pulmonary nodule; I10 Essential (primary) hypertension; V80.010A Animal-rider injured by fall from or being thrown from horse in noncollision accident, initial encounter; Y93.52 Activity, horseback riding; Z79.899 Other long term (current) drug therapy; Z87.891 Personal history of nicotine dependence
CPT/HCPCS: 36415; 71045; 71046; 71260; 73000; 80048; 80053; 83735; 84100; 85007; 85025; 85027; 87081; 94640; 96374; G0378

== ENCOUNTER 2018-04-15 05:55 | Outpatient (CLI) | payer OTHER ==
[~2018-04-15] VITALS: Ht 182.9 cm; Wt 90.8 kg
[~2018-04-15 05:55] MED LIST changes: +ACHD5005 PO; +AMLO2.5T2 PO; +ASPI-586 PO; +DOCU-143 PO; +OLME1TAB24 PO
== END 2018-04-15 14:55 | disposition home or self-care (01) ==
LOC: PREOP 05:55
PROVIDERS: ATTEND Surgery
DX: Z01.818 Encounter for other preprocedural examination (principal)

== ENCOUNTER 2018-04-27 09:20 | Day surgery (SDC) | payer OTHER ==
[~2018-04-27] VITALS: Ht 182.9 cm; Wt 90.8 kg
--- OUTSIDE RECORDS SUMMARY | 2018-04-27 09:25 | XMS REPORT | Continuity of Care Document ---
Author Author [facility] Address Unknown Phone Unavailable Allergies Active Description Code Type Severity Reaction Onset Reported/Identified Relationship to Patient Clinical Status Yes No Known Drug Allergies [id number] Drug Allergy Unknown N/A 04/15/2018 Medications There is no data. Problems Date [...] FAC, ALI FACP CCDS Ot Z79.899 OTHER SENIOR CARE (CURRENT) DRUG THERAPY 10/10/2015 EMMA PACHECO FACC, ALI FACP CCDS Ot I10 ESSENTIAL (PRIMARY) HYPERTENSION 10/10/2015 EMMA PACHECO FAC, ALI FACP CCDS Ot I42.0 DILATED CARDIOMYOPATHY 10/10/2015 EMMA PACHECO [facility], ALI FACP CCDS Ot I44.7 LEFT BUNDLE-BRANCH BLOCK, UNSPECIFIED 10/10/2015 EMMA PACHECO [facility], ALI FACP CCDS Ot R42 DIZZINESS AND GIDDINESS 10/10/2015 EMMA PACHECO [facility], ALI FACP CCDS Ot Z79.899 OTHER RESEARCH PSYCHOLOGIST (CURRENT) DRUG THERAPY 10/11/2015 SONY MONTEIRO MD [...] RIDING 11/10/2017 Ot 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 11/20/2017 CAYETANO PACHECO, SONY Aquino Ot V72.84 EXAM PRE-OPERATIVE NOS 11/21/2017 KUN CARLIN DO Ot E87.6 HYPOKALEMIA 11/21/2017 KUN CARLIN DO Ot I10 ESSENTIAL (PRIMARY) HYPERTENSION 11/21/2017 KUN CARLIN DO Ot R91.1 SOLITARY PULMONARY NODULE 11/21/2017 KUN CARLIN DO Ot S22.42XA MULTIPLE FRACTURES OF RIBS, LEFT SIDE, I 11/21/2017 KUN CARLIN DO Ot S27.0XXA TRAUMATIC PNEUMOTHORAX, INITIAL ENCOUNTE 11/21/2017 KUN CARLIN DO Ot S42.022A DISP FX OF SHAFT OF LEFT CLAVICLE, INIT 11/21/2017 KUN CARLIN DO Ot V80.010A ANIML-RIDR INJURED BY FALL FR HORSE IN N 11/21/2017 CARLIN , KUN [place] Ot Y93.52 ACTIVITY, HORSEBACK RIDING 11/21/2017 CARLIN KUN MADRIGAL Ot Z79.899 OTHER RESEARCH PSYCHOLOGIST (CURRENT) DRUG THERAPY 11/21/2017 CARLIN KUN MADRIGAL Ot Z87.891 PERSONAL HISTORY OF NICOTINE DEPENDENCE 11/21/2017 CARLIN KUN MADRIGAL Ot E87.6 HYPOKALEMIA 11/21/2017 CARLIN KUN MADRIGAL D Ot I10 ESSENTIAL (PRIMARY) HYPERTENSION 11/21/2017 [facility] R91.1 SOLITARY PULMONARY NODULE 11/21/2017 CARLIN KUN MADRIGAL Ot S22.42XA MULTIPLE FRACTURES OF RIBS, LEFT SIDE, I 11/21/2017 KUN CARLIN DO Ot S27.0XXA TRAUMATIC PNEUMOTHORAX, INITIAL ENCOUNTE 11/21/2017 KUN CARLIN DO Ot S42.022A DISP FX OF SHAFT OF LEFT CLAVICLE, INIT 11/21/2017 KUN CARLIN DO Ot V80.010A ANIML-RIDR INJURED BY FALL FR HORSE IN N 11/21/2017 KUN CARLIN DO Ot Y93.52 ACTIVITY, HORSEBACK RIDING 11/21/2017 KUN CARLIN DO Ot Z79.899 OTHER SENIOR CARE (CURRENT) DRUG THERAPY 11/21/2017 KUN CARLIN DO Ot Z87.891 PERSONAL HISTORY OF NICOTINE DEPENDENCE 11/26/2017 CARLIN KUN MADRIGAL D Ot E87.6 HYPOKALEMIA 11/26/2017 KUN CARLIN DO D Ot I10 ESSENTIAL (PRIMARY) HYPERTENSION 11/26/2017 CARLIN KUN MADRIGAL Ot R91.1 SOLITARY PULMONARY NODULE 11/26/2017 CARLIN KUN MADRIGAL Ot S22.42XA MULTIPLE FRACTURES OF RIBS, LEFT SIDE, I 11/26/2017 KUN CARLIN DO Ot S27.0XXA TRAUMATIC PNEUMOTHORAX, INITIAL ENCOUNTE 11/26/2017 KUN CARLIN DO Ot S42.022A DISP FX OF SHAFT OF LEFT CLAVICLE, INIT 11/26/2017 KUN CARLIN DO Ot V80.010A ANIML-RIDR INJURED BY FALL FR HORSE IN N 11/26/2017 KUN CARLIN DO Ot Y93.52 ACTIVITY, HORSEBACK RIDING 11/26/2017 KUN CARLIN DO Ot Z79.899 OTHER SENIOR CARE (CURRENT) DRUG THERAPY 11/26/2017 KUN CARLIN DO Ot Z87.891 PERSONAL HISTORY OF NICOTINE DEPENDENCE 04/15/2018 CAYETANO PACHECO, SONY Aquino Ot Z01.818 ENCOUNTER FOR OTHER PREPROCEDURAL EXAMIN 04/16/2018 SONY MONTEIRO MD Ot Z01.818 ENCOUNTER FOR OTHER PREPROCEDURAL EXAMIN 04/24/2018 CAYETANO PACHECO, SONY Aquino Ot V72.84 EXAM PRE-OPERATIVE NOS Procedures There is no data. Results Test [...] g/dL 3.2-4.5 CALCIUM CORRECTED 9.4 mg/dL 8.5-10.1 Methicillin resistant Staphylococcus aureus (MRSA) screening culture - 22:15 Methicillin resistant Staphylococcus aureus (MRSA) screening culture NEG NRG Complete blood count (CBC) with automated white blood cell (WBC) differential - 11/21/17 02:51 Blood leukocytes automated count (number/volume) 12.9 10*3/uL 4.3-11.0 Blood erythrocytes automated count (number/volume) 4.18 10*6/uL 4.35-5.85 Venous blood hemoglobin measurement (mass/volume) 12.0 g/dL 13.3-17.7 Blood hematocrit (volume fraction) 36 % 40-54 Automated erythrocyte mean corpuscular volume 87 [foz_us] 80-99 Automated erythrocyte mean corpuscular hemoglobin (mass per erythrocyte) 29 pg 25-34 Automated erythrocyte mean corpuscular hemoglobin concentration measurement ( mass/volume) 33 g/dL 32-36 Automated erythrocyte distribution width ratio 15.1 % 10.0-14.5 Automated blood platelet count (count/volume) 244 10*3/uL 130-400 Automated blood platelet mean volume measurement 10.5 [foz_us] 7.4-10.4 Automated blood neutrophils/100 leukocytes 87 % 42-75 Automated blood lymphocytes/100 leukocytes 6 % 12-44 Blood monocytes/100 leukocytes 6 % 0-12 Automated blood eosinophils/100 leukocytes 0 % 0-10 Automated blood basophils/100 leukocytes 0 % 0-10 Blood neutrophils automated count (number/volume) 11.3 10*3 1.8-7.8 Blood lymphocytes automated count (number/volume) 0.8 10*3 1.0-4.0 Blood monocytes automated count (number/volume) 0.8 10*3 0.0-1.0 Automated eosinophil count 0.0 10*3/uL 0.0-0.3 Automated blood basophil count (count/volume) 0.0 10*3/uL 0.0-0.1 Whole blood basic metabolic panel - 11/21/17 02:51 Serum or plasma sodium measurement (moles/volume) 136 mmol/L 135-145 Serum or plasma potassium measurement (moles/volume) 4.3 mmol/L 3.6-5.0 Serum or plasma chloride measurement (moles/volume) 104 mmol/L 98-107 Carbon dioxide 24 mmol/L 21-32 Serum or plasma anion gap determination (moles/volume) 8 mmol/L 5-14 Serum or plasma urea nitrogen measurement (mass/volume) 12 mg/dL 7-18 Serum or plasma creatinine measurement (mass/volume) 1.04 mg/dL 0.60-1.30 Serum or plasma urea nitrogen/creatinine mass ratio 12 NRG Serum or plasma creatinine measurement with calculation of estimated glomerular filtration rate > NRG Serum or plasma glucose measurement (mass/volume) 146 mg/dL 70-105 Serum or plasma calcium measurement (mass/volume) 9.5 mg/dL 8.5-10.1 Serum or plasma phosphate measurement (mass/volume) - 11/21/17 02:51 Serum or plasma phosphate measurement (mass/volume) 3.1 mg/dL 2.3-4.7 Magnesium - 11/21/17 02:51 Magnesium 2.1 mg/dL 1.8-2.4 Blood manual differential performed detection - 11/21/17 02:51 Blood monocytes/100 leukocytes 6 % NRG Manual blood segmented neutrophils/100 leukocytes 86 % NRG Manual blood lymphocytes/100 leukocytes 7 % NRG Manual eosinophils/100 leukocytes in nose 1 % NRG Encounters ACCT No. Visit Date/Time Discharge Status Pt. Type Provider Facility Loc./Unit Complaint [id number] 02/20/2012 15:30:08 RECURRING [id number] 04/20/2018 10:00:00 04/20/2018 23:59:59 CLS Preadmit SONY MONTEIRO MD [facility] ENDO HX POLYPS/OCCULT + [id number] 04/15/2018 05:55:00 04/15/2018 14:55:00 DIS Outpatient SONY MONTEIRO MD [facility] PREOP COLONOSCOPY [id number] 11/20/2017 20:25:00 11/21/2017 15:45:00 DIS Inpatient KUN CARLIN DO [facility] ICU L PNEUMOTHORAX, MULTIPLE RIB FX, CLAVICLE FX [id number] 10/03/2015 07:04:00 10/03/2015 14:30:00 DIS Outpatient EMMA PACHECO FACC, YESENIA THAKKAR CCDS [facility] CATH DILATED CARDIOMYOPATHY, PAH, VERTIGO, SOB [id number] 09/04/2015 12:37:00 09/05/2015 18:35:00 DIS Inpatient DARBY SAINZ DO [facility] 4TH INTRACTABLE VERTIGO EKG CHANGES HYPOKALEMIA [id number] 05/09/2014 06:45:00 05/09/2014 09:40:00 DIS Outpatient SONY MONTEIRO MD [facility] SDC HISTORY OF POLYPS [id number] 05/04/2014 11:46:00 05/04/2014 23:59:59 CLS Outpatient SONY MONTEIRO MD [facility] PREOP HISTORY OF POLYPS [id number] 01/29/2014 00:03:00 01/29/2014 00:28:00 DIS Emergency CANDACE SEBASTIAN MD [facility] ER SOA;COUGH [id number] 06/15/2011 13:07:00 Document Registration [id number] 06/11/2010 06:13:00 Document Registration [id number] 07/06/2009 14:42:00 Document Registration [id number] 06/25/2009 23:07:00 Document Registration [id number] 06/25/2009 17:01:00 Document Registration [email or web address] 05/09/2014 15:22:57 ACT Document Registration
[2018-04-27] MEDS ORDERED: NS IV 500 ML 500 ML IV PRN (09:34)
[2018-04-27 09:35] VITALS: BP 102/62
[2018-04-27] MEDS ORDERED: NS IV 500 ML 500 ML ONE (09:37)
[2018-04-27] MEDS ORDERED: MIDAZOLAM 2 MG/2 ML (VERSED) VIAL IVP ONE (09:45)
[2018-04-27] MEDS ORDERED: fentaNYL INJECTION 100 MCG/2 ML AMP IVP ONE (09:45)
[2018-04-27 09:56] VITALS: BP 128/88
--- NOTE | 2018-04-27 10:06 | Conscious Sedation/ASA ---
Conscious Sedation Pre-Proced Time 10:06 ASA Score 2 For ASA 3 and 4: Consider anesthesia and medical clearance. Also, for patients with a history of failed moderate sedation consider anesthesia. Airway Lungs Heart ASA score ASA 1: a normal healthy patient ASA 2: a patient with a mild systemic disease (mid diabetes, controlled hypertension, obesity ASA 3: a patient with a severe systemic disease that limits activity (angina , COPD, prior Myocardial infarction) ASA 4: a patient with an incapacitating disease that is a constant threat to life (CHF, renal failure) ASA 5: a moribund patient not expected to survive 24 hrs. (ruptured aneurysm) ASA 6: a declared brain- patient whose organs are being harvested. For emergent operations, add the letter E after the classification Mallampati Classification Grade 1 Sedation Plan Discussed options with patient/fam The patient is an appropriate candidate to undergo the planned procedure, sedation, and anesthesia. The patient immediately re-assessed prior to indication. SONY MONTEIRO MD Apr 27, 2018 10:06
--- NOTE | 2018-04-27 10:06 | History & Physicial ---
History of Present Illness History of Present Illness Reason for visit/HPI to undergo surveillance colonoscopy on the basis of a personal history and recent heme-positive stools. Date of Admission 04/27/18 Date Seen by a Provider: Apr 27, 2018 Time Seen by a Provider: 10:04 I consulted on this patient on 04/27/18 10:04 Attending Physician Sony Ward MD Admitting Physician Jessika Wallace DO Consult Allergies and Home Medications Allergies Coded Allergies: No Known Drug Allergies (Unverified , 04/15/18) Home Medications Amlodipine Besylate 2.5 Mg Tablet, 2.5 MG PO HS, (Reported) Aspirin 81 Mg Tablet.dr, 81 MG PO DAILY, (Reported) Carvedilol 3.125 Mg Tablet, 3.125 MG PO BID, (Reported) Olmesartan/Hydrochlorothiazide 1 Each Tablet, 1 TAB PO DAILY, (Reported) Patient Home Medication List Home Medication List Reviewed: Yes Past Capmmgx-Uhxjbf-Fcowiv Hx Patient Social History Marrital Status: Employed/Student: employed Alcohol Use: Denies Use Recreational Drug Use: No Smoking Status: Former Smoker Former Smoker, Quit: Oct 02, 1973 Type Used: Cigarettes 2nd Hand Smoke Exposure: Yes Recent Foreign Travel: No Contact w/other who traveled: No Recent Hopitalizations: No Recent Infectious Disease Expo: No Seasonal Allergies Seasonal Allergies: Yes (MILD) Surgeries Yes (COLLAR BONE FX, ELBOW, ) Respiratory Yes (ASTHMA A CHILD) Cardiovascular Yes Hypertension Neurological No Reproductive System Hx Reproductive Disorders: No Sexually Transmitted Disease: No HIV/AIDS: No Genitourinary No Gastrointestinal No Musculoskeletal Yes (LEFT ELBOW FX, WRIST FX, RIB FX, ) Arthritis Endocrine History of Endocrine Disorders: No HEENT History of HEENT Disorders: Yes (READING GLASSES) Loss of Vision: Bilateral Cancer No Psychosocial History of Psychiatric Problem: No Integumentary History of Skin or Integumenta: No Blood Transfusions History of Blood Disorders: No Adverse Reaction to a Blood Tr: No (N/A) Family Medical History Significant Family History: No Pertinent Family Hx Review of Systems Constitutional: no symptoms reported Respiratory: no symptoms reported Cardiovascular: no symptoms reported Gastrointestinal: no symptoms reported Genitourinary: no symptoms reported Musculoskeletal: no symptoms reported Skin: no symptoms reported Psychiatric/Neurological: No Symptoms Reported Physical Exam Vital Signs Vital Signs - First Documented 04/27/18 09:35 Temp 96.7 Pulse 59 Resp 16 B/P (MAP) 102/62 Pulse Ox 95 O2 Delivery Room Air Capillary Refill : Height, Weight, BMI Height: 6'0.00" Weight: 200lbs. 2.0oz. [id number]; 27.1 BMI Method:Stated General Appearance: No Apparent Distress Neck: Normal Inspection Respiratory: Lungs Clear Cardiovascular: Regular Rate, Rhythm Gastrointestinal: Non Tender, Soft Rectal: Deferred Neurologic/Psychiatric: Alert, Oriented x3 Skin: Warm/Dry Assessment/Plan Assessment and Plan gentleman with a previous history of polyps. Heme-positive stools. For colonoscopy Admission Diagnosis Admission Status: Other (Outpt Proc) SONY WARD MD Apr 27, 2018 10:06
[2018-04-27] MEDS ORDERED: fentaNYL INJECTION 100 MCG/2 ML AMP ONE (10:54)
[2018-04-27] MEDS ORDERED: MIDAZOLAM 2 MG/2 ML (VERSED) VIAL ONE ×4 (10:54→10:55)
--- NOTE | 2018-04-27 11:32 | Endo Procedure Record ---
Endo Procedure Report Date of Procedure Last Colonoscopy: Yes (2017) Apr 27, 2018 Surgeon (s) SONY MONTEIRO MD Post Procedure/Op Diagnosis occasional sigmoid diverticulae Procedure Performed colonoscopy to cecum Description of Procedure Anesthesia Type: Conscious Sedation Specimen(s) collected/removed none Description of the Procedure Indication for the procedure: This gentleman has a personal history of polyps and was found to have heme-positive stools. Therefore, colonoscopy was felt to be reasonable. Informed consent was obtained after reviewing the procedure in detail. Description of the procedure: He was placed in left lateral decubitus position and his vital signs were monitored. Conscious sedation was achieved using Versed and fentanyl. Digital rectal examination was unremarkable. The colonoscope was then introduced into the rectum and advanced all the way up to the cecum. The scope was then withdrawn slowly and the mucosa examined in a systematic fashion. Findings: Very few sigmoid diverticulae. No recurrent polyps were found. He tolerated the procedure well and was taken back to the nursing area in a stable condition. Impression polyp surveillance. Heme-positive stools. No recurrent polyps identified. Recommend surveillance colonoscopy in 5 more years. Copy Copies To 1: DARBY SAINZ XAVIER M MD Apr 27, 2018 11:32
--- NOTE | 2018-04-27 11:33 | Discharge Inst-Simple/Standard ---
Discharge Inst-Standard Discharge Medications New, Converted or Re-Newed RX: Other Patient Instructions/Follow Up Plan of Care/Instructions/FU: repeat colonoscopy in 5 years Activity as Tolerated: Yes Discharge Diet: No Restrictions SONY MONTEIRO MD Apr 27, 2018 11:33
[2018-04-27 11:40] VITALS: BP 110/66
[2018-04-27 12:10] VITALS: BP 121/86
[2018-04-27 12:25] VITALS: BP 121/86
== END 2018-04-27 12:25 | disposition home or self-care (01) ==
LOC: ENDO 09:20
PROVIDERS: ATTEND Surgery
DX: K57.30 Diverticulosis of large intestine without perforation or abscess without bleeding (principal); R19.5 Other fecal abnormalities; I10 Essential (primary) hypertension; M19.91 Primary osteoarthritis, unspecified site; Z86.010 Personal history of colon polyps; Z79.82 Long term (current) use of aspirin; Z79.899 Other long term (current) drug therapy; Z87.891 Personal history of nicotine dependence